=== PATIENT | female | born 1990 | race American Indian/Alaskan Native ===

== ENCOUNTER 2020-01-03 06:00 | Emergency (ER) | payer OTHER ==
[~2020-01-03] VITALS: Ht 167.6 cm; Wt 60.8 kg
[~2020-01-03 06:00] MED LIST: IBUP800 PO; Percocet 5-3251 EACH PO
[2020-01-03] MEDS ORDERED: ASPI81CH PO (06:13)
[2020-01-03] MEDS ORDERED: PRENATAL TABLE1 EAC2 PO (06:13)
[2020-01-03 06:59] LABS: Source, Urine Clean Catch
[2020-01-03 07:03] LABS: BASOPHILS ABSOLUTE AUTO 0.04 K/mm3 (0.00-0.23); BASOPHILS PERCENT AUTO 1 % (0-2); EOSINOPHILS ABSOLUTE AUTO 0.18 K/mm3 (0.00-0.68); EOSINOPHILS PERCENT AUTO 2 % (0-6); Hematocrit 39.3 % (33.0-51.0); IMMATURE GRAN ABSOLUTE AUTO 0.05 K/mm3 (0.00-0.10); IMMATURE GRAN PERCENT AUTO 1 % (0-1); LYMPHOCYTES ABSOLUTE AUTO 2.17 K/mm3 (0.84-5.20); LYMPHOCYTES PERCENT AUTO 26 % (21-46); MONOCYTES ABSOLUTE AUTO 0.78 K/mm3 (0.16-1.47); MONOCYTES PERCENT AUTO 9 % (4-13); Mean Corpuscular HGB 29.6 pg (26.0-34.0); Mean Corpuscular HGB Conc 33.1 g/dL (31.5-36.5); Mean Corpuscular Volume 90 fL (80-100); Mean Platelet Volume 9.2 fL (9.1-12.4); NEUTROPHILS ABSOLUTE AUTO 5.16 K/mm3 (1.96-9.15); NEUTROPHILS PERCENT AUTO 62 % (41-73); Platelet Count 276 K/mm3 (150-400); RDW Coefficient Variation 12.1 % (11.7-14.2); RDW Standard Deviation 39.7 fL (35.1-46.3); Red Blood Cell Count 4.39 M/mm3 (3.80-5.20); White Blood Cell Count 8.38 K/mm3 (4.00-11.30)
[2020-01-03 07:05] LABS: Appearance, Urine Clear (Clear); Bilirubin, Urine Neg (Neg); Blood, Urine 5+ (Neg); Color, Urine Yellow (P-Yellow); Glucose Qualitative, Urine Neg (Neg); Ketones, Urine Neg (Neg); Leukocyte Esterase, Urine Neg (Neg); Nitrite, Urine Neg (Neg); Protein, Urine Neg (Neg); Specific Gravity, Urine 1.005 (1.003-1.022); Urobilinogen, Urine NORM (Normal)
[2020-01-03 07:14] LABS: Alanine Aminotransfer (ALT/SGP 13 U/L (12-78); Albumin, Blood 3.8 g/dL (3.4-5.0); Albumin/Globulin Ratio 1.1 (0.8-1.8); Alk Phos 41 U/L (50-136); Anion Gap 6 mmol/L (6-16); Aspartate Aminotrans (AST/SGOT 21 U/L (12-37); Bilirubin, Total 0.3 mg/dL (0.1-1.0); Blood Urea Nitrogen 9 mg/dL (8-24); Bun/Creatinine Ratio 16.3 (12.0-20.0); CO2, Blood 25 mmol/L (21-32); Calcium, Blood 8.8 mg/dL (8.5-10.1); Chloride, Blood 107 mmol/L (98-108); Creatinine, Blood 0.55 mg/dL (0.40-1.00); Globulin, Blood 3.4 g/dL (2.2-4.0); Glomerular Filtration Rate >60 (60-); Glucose, Blood 95 mg/dL (70-99); Potassium, Blood 3.8 mmol/L (3.5-5.5); Sodium, Blood 138 mmol/L (136-145); Total Protein, Blood 7.2 g/dL (6.4-8.2)
[2020-01-03 07:17] LABS: Bacteria Not Seen /hpf; Squamous Epithelial Cells Few /hpf (Few); White Blood Cells, Urine 0-2 /hpf (0-5)
== END 2020-01-03 09:37 | disposition home or self-care (01) ==
LOC: ER 06:00
PROVIDERS: Emergency Medicine
DX: O20.9 Hemorrhage in early pregnancy, unspecified (principal); Z3A.13 13 weeks gestation of pregnancy; Z79.82 Long term (current) use of aspirin
CPT/HCPCS: 36415; 76801; 80053; 81001; 84702; 84703; 85025; 86900; 86901; 96360; 96361; 96372-59; 99284-25; J2791; J7030

== ENCOUNTER → 2020-04-03 | Outpatient (CLI) | payer OTHER ==
[~2020-04-03] MED LIST changes: +ASPI81CH PO; +PRENATAL TABLE1 EAC2 PO
[2020-04-03 15:09] LABS: Hematocrit 34.4 % (33.0-51.0); Hemoglobin 11.5 g/dL (11.5-16.0)
[2020-04-05 04:12] LABS: CHLAMYDIA TRACHOMATIS, NAA Negative (Negative)
== END ==
LOC: LAB SHORT 12:28
PROVIDERS: Registered Nurse Community Health
DX: Z34.83 Encounter for supervision of other normal pregnancy, third trimester (principal); Z33.1 Pregnant state, incidental
CPT/HCPCS: 82950; 85014; 85018; 87491; 87591

== ENCOUNTER 2020-07-13 16:32 | Inpatient (IN) | payer OTHER ==
[~2020-07-13] VITALS: Ht 165.1 cm; Wt 75.0 kg
[2020-07-13 17:16] LABS: BASOPHILS ABSOLUTE AUTO 0.07 K/mm3 (0.00-0.23); BASOPHILS PERCENT AUTO 1 % (0-2); EOSINOPHILS ABSOLUTE AUTO 0.12 K/mm3 (0.00-0.68); EOSINOPHILS PERCENT AUTO 1 % (0-6); Hematocrit 37.7 % (33.0-51.0); Hemoglobin 13.6 g/dL (11.5-16.0); IMMATURE GRAN ABSOLUTE AUTO 0.22 K/mm3 (0.00-0.10); IMMATURE GRAN PERCENT AUTO 1 % (0-1); LYMPHOCYTES ABSOLUTE AUTO 1.69 K/mm3 (0.84-5.20); LYMPHOCYTES PERCENT AUTO 11 % (21-46); MONOCYTES ABSOLUTE AUTO 0.93 K/mm3 (0.16-1.47); MONOCYTES PERCENT AUTO 6 % (4-13); Mean Corpuscular HGB 30.6 pg (26.0-34.0); Mean Corpuscular HGB Conc 36.1 g/dL (31.5-36.5); Mean Corpuscular Volume 85 fL (80-100); Mean Platelet Volume 9.5 fL (9.1-12.4); NEUTROPHILS ABSOLUTE AUTO 12.37 K/mm3 (1.96-9.15); NEUTROPHILS PERCENT AUTO 80 % (41-73); Platelet Count 249 K/mm3 (150-400); RDW Coefficient Variation 12.5 % (11.7-14.2); RDW Standard Deviation 38.5 fL (35.1-46.3); Red Blood Cell Count 4.44 M/mm3 (3.80-5.20)
[2020-07-13 17:35] LABS: Influenza A, PCR NEGATIVE (NEGATIVE); Influenza B, PCR NEGATIVE (NEGATIVE); Resp Syncytial Virus, PCR NEGATIVE (NEGATIVE); SARS-Cov-2 (COVID-19) PCR, MMC NEGATIVE (NEGATIVE)
[2020-07-14 10:35] LABS: BASOPHILS ABSOLUTE AUTO 0.04 K/mm3 (0.00-0.23); BASOPHILS PERCENT AUTO 0 % (0-2); EOSINOPHILS ABSOLUTE AUTO 0.01 K/mm3 (0.00-0.68); EOSINOPHILS PERCENT AUTO 0 % (0-6); Hematocrit 30.7 % (33.0-51.0); Hemoglobin 10.7 g/dL (11.5-16.0); IMMATURE GRAN PERCENT AUTO 1 % (0-1); LYMPHOCYTES ABSOLUTE AUTO 2.05 K/mm3 (0.84-5.20); LYMPHOCYTES PERCENT AUTO 10 % (21-46); MONOCYTES ABSOLUTE AUTO 1.53 K/mm3 (0.16-1.47); MONOCYTES PERCENT AUTO 8 % (4-13); Mean Corpuscular HGB 30.7 pg (26.0-34.0); Mean Corpuscular HGB Conc 34.9 g/dL (31.5-36.5); Mean Corpuscular Volume 88 fL (80-100); Mean Platelet Volume 9.6 fL (9.1-12.4); NEUTROPHILS ABSOLUTE AUTO 16.54 K/mm3 (1.96-9.15); NEUTROPHILS PERCENT AUTO 81 % (41-73); Platelet Count 205 K/mm3 (150-400); RDW Coefficient Variation 12.8 % (11.7-14.2); Red Blood Cell Count 3.48 M/mm3 (3.80-5.20); White Blood Cell Count 20.37 K/mm3 (4.00-11.30)
[2020-07-14] MEDS ORDERED: IBUP800 PO (17:04)
--- NOTE | 2020-07-15 09:00 | NUR ---
RN/LC ROUNDED TO HELP W/ . PT STATES THAT NB WAS EXTREMELY FUSSY THROUGH THE NIGHT, NOC RN GAVE PT A SHIELD AND WHEN NB WOULD NOT LATCH TO SHIELD PT REQUESTED A BOTTLE. LC ENCOURAGED PT TO LATCH NB TO BREAST MUCH SHE CAN W/O SHIELD. IF USING SHIELD CONSISTANTLY, PT IS INSTRUCETED TO PUMP AFTER MOST FEEDS FOR 10-15 MINUTES FOR ADDITIONAL STIMULATION. INSTRUCTED PT TO ATTEMPT TO LATCH NB W/O SHIELD EACH FEED, IF NB WILL NOT LATCH TO USE SHIELD. INSTRUCT/DEMO HOW TO USE CURVED TIP SYRINGE TO LOAD SHIELD W/ FORMULA OR EBM TO HELP START FEEDS. NB VERY FUSSY W/ CURRENT FEED.
--- NOTE | 2020-07-15 10:35 | NUR ---
DISCHARGE INSTRUCTIONS, WRITTEN AND VERBAL, GIVEN TO PT AND , DUC. ANSWERED ALL QUESTIONS AND CONCERNS. PT DENIED NEEDING ANY PRESCRIPTIONS. FOLLOW UP APPOINTMENT SCHEDULED. RETURNED ALL PERSONAL BELONGINGS. PT IS READY FOR DISCHARGE.
== END 2020-07-15 11:00 | disposition home or self-care (01) | DRG 807 ==
LOC: BC 16:32 → OBS 16:32 → BC 16:43
PROVIDERS: ADMIT Registered Nurse Community Health
PROC: 10907ZC Drainage of Amniotic Fluid, Therapeutic from Products of Conception, Via Natural or Artificial Opening (ICD-10-PCS; 2020-07-13)
PROC: 10E0XZZ Delivery of Products of Conception, External Approach (ICD-10-PCS; principal; 2020-07-14)
PROC: 0KQM0ZZ Repair Perineum Muscle, Open Approach (ICD-10-PCS; 2020-07-14)
DX: O69.81X0 Labor and delivery complicated by cord around neck, without compression, not applicable or unspecified (principal); Z37.0 Single live birth; O70.1 Second degree perineal laceration during delivery; Z3A.40 40 weeks gestation of pregnancy; Z20.822 Contact with and (suspected) exposure to COVID-19
CPT/HCPCS: 0241U; 36415; 85025; 86850; 86870; 86900; 86901; A9270; J1885; J2210; J2590; J7120

== ENCOUNTER → 2023-05-11 | Outpatient (CLI) | payer OTHER ==
[2023-05-19 13:12] LABS: HPV GENOTYPE 16 Not Detected; HPV GENOTYPE 18 Not Detected; HPV HIGH RISK Not Detected; HPV SOURCE Cervical
== END | disposition home or self-care (01) ==
LOC: LAB SHORT 13:20 → LAB 13:20
PROVIDERS: Registered Nurse Community Health
DX: Z12.4 Encounter for screening for malignant neoplasm of cervix (principal)
CPT/HCPCS: 87624; G0123

== ENCOUNTER → 2023-09-13 | Outpatient (CLI) | payer OTHER | LOC: LAB SHORT 08:20 → LAB 08:20 | DX: Z32.00 Encounter for pregnancy test, result unknown (principal) | CPT/HCPCS: 84702 ==

== ENCOUNTER → 2023-09-15 | Outpatient (CLI) | payer OTHER | LOC: LAB SHORT 11:36 → LAB 11:36 | DX: O36.80X0 Pregnancy with inconclusive fetal viability, not applicable or unspecified (principal) | CPT/HCPCS: 84702 ==

== ENCOUNTER → 2024-08-16 | Outpatient (CLI) | payer OTHER | LOC: LAB 10:24 → LAB SHORT 10:24 | DX: Z34.81 Encounter for supervision of other normal pregnancy, first trimester (principal) ==

== ENCOUNTER → 2024-10-24 | Outpatient (CLI) | payer OTHER ==
[2024-10-24 16:44] LABS: Chlamydia Trachomatis Urine NOT DETECTED (NOT DETECT); Neisseria Gonorrhoea Urine NOT DETECTED (NOT DETECT)
== END ==
LOC: LAB SHORT 12:37 → LAB 12:37
PROVIDERS: Registered Nurse Community Health
DX: Z34.82 Encounter for supervision of other normal pregnancy, second trimester (principal)
CPT/HCPCS: 87491; 87591

== ENCOUNTER 2025-03-02 15:15 | Inpatient (IN) | payer OTHER ==
[~2025-03-02] VITALS: Ht 167.6 cm; Wt 80.7 kg
[2025-03-02 15:27] VITALS: BP 143/78
[2025-03-02] MEDS ORDERED: FentaNYL Citrate 50 MCG/ML 2 ML Injection IV PRN (15:35)
[2025-03-02] MEDS ORDERED: Oxytocin 10 Unit / ML Vial IM PRN (15:35)
[2025-03-02] MEDS ORDERED: OXYTOCIN/RINGER'S LACTATE 500 ML IV PRN (15:35)
[2025-03-02] MEDS ORDERED: Methylergonovine Maleate 0.2MG / ML 1ML Amp IM PRN (15:35)
[2025-03-02] MEDS ORDERED: Ondansetron HCl 2 MG / ML 2ML Vial IV PRN (15:35)
[2025-03-02] MEDS ORDERED: Tranexamic Acid 100 ML IV SCH (15:35)
[2025-03-02] MEDS ORDERED: Carboprost Tromethamine 250 MCG/ML 1ML Amp IM PRN (15:35)
[2025-03-02] MEDS ORDERED: ePHEDrine Sulfate 50 MG/ML 1ML Injection XX PRN (15:40)
[2025-03-02] MEDS ORDERED: FentaNYL 2mcg/ml-Bup 0.1% Epd 250 ML EPI PRN (15:40)
[2025-03-02] MEDS ORDERED: LABE100 PO (16:04)
[2025-03-02] MEDS ORDERED: Vitamin B-12100 MCG PO (16:05)
[2025-03-02] MEDS ORDERED: PROBIOTIC1 EA14 PO (16:06)
[2025-03-02 16:24] LABS: BASOPHILS ABSOLUTE AUTO 0.05 K/mm3 (0.00-0.23); BASOPHILS PERCENT AUTO 0 % (0-2); EOSINOPHILS ABSOLUTE AUTO 0.14 K/mm3 (0.00-0.68); EOSINOPHILS PERCENT AUTO 1 % (0-6); Hematocrit 36.2 % (33.0-51.0); Hemoglobin 12.7 g/dL (11.5-16.0); IMMATURE GRAN ABSOLUTE AUTO 0.21 K/mm3 (0.00-0.10); IMMATURE GRAN PERCENT AUTO 2 % (0-1); LYMPHOCYTES ABSOLUTE AUTO 1.62 K/mm3 (0.84-5.20); LYMPHOCYTES PERCENT AUTO 13 % (21-46); MONOCYTES ABSOLUTE AUTO 0.90 K/mm3 (0.16-1.47); MONOCYTES PERCENT AUTO 7 % (4-13); Mean Corpuscular HGB Conc 35.1 g/dL (31.5-36.5); Mean Corpuscular Volume 88 fL (80-100); NEUTROPHILS ABSOLUTE AUTO 9.48 K/mm3 (1.96-9.15); NEUTROPHILS PERCENT AUTO 76 % (41-73); NRBC ABSOLUTE 0.00 K/mm3 (0.00-0.02); NRBC Auto 0.0 /100 WBC (0.0-0.2); Platelet Count 289 K/mm3 (150-400); RDW Coefficient Variation 13.0 % (11.7-14.2); RDW Standard Deviation 41.5 fL (35.1-46.3)
[2025-03-02 16:35] VITALS: BP 137/88
[2025-03-02 16:45] LABS: Alanine Aminotransfer (ALT/SGP 27.0 U/L (12-78); Albumin, Blood 3.1 g/dL (3.4-5.0); Albumin/Globulin Ratio 0.8 (0.8-1.8); Anion Gap 11.0 mmol/L (3-11); Aspartate Aminotrans (AST/SGOT 37.0 U/L (12-37); Bilirubin, Total 0.2 mg/dL (0.1-1.0); Blood Urea Nitrogen 10.0 mg/dL (8-24); CO2, Blood 22.0 mmol/L (21-32); Calcium, Blood 9.0 mg/dL (8.5-10.1); Chloride, Blood 106.0 mmol/L (98-108); Creatinine, Blood 0.52 mg/dL (0.40-1.00); Globulin, Blood 3.7 g/dL (2.2-4.0); Glucose, Blood 96.0 mg/dL (70-99); Potassium, Blood 3.9 mmol/L (3.5-5.5); Sodium, Blood 135.0 mmol/L (136-145); Total Protein, Blood 6.8 g/dL (6.4-8.2)
[2025-03-02 18:11] VITALS: BP 136/84
[2025-03-02 19:52] VITALS: BP 134/73
[2025-03-02 21:20] VITALS: BP 144/70
[2025-03-02 21:37] VITALS: BP 138/78
[2025-03-03] VITALS (20 sets, daily range): BP systolic 108–157; BP diastolic 52–87
[2025-03-03] MEDS ORDERED: OXYTOCIN/RINGER'S LACTATE 500 ML IV SCH ×2 (17:20→21:25)
[2025-03-04] VITALS (71 sets, daily range): BP systolic 87–169; BP diastolic 47–78
[2025-03-04] MEDS ORDERED: Ampicillin Sod 1,000 MG in NS 50 ML IV SCH (06:00)
[2025-03-04] MEDS ORDERED: Methylergonovine Maleate 0.2MG / ML 1ML Amp IM PRN (13:05)
[2025-03-04] MEDS ORDERED: OxyCODONE 5 mg/Acetamin 325 mg TABLET PO PRN (13:05)
[2025-03-04] MEDS ORDERED: Benzocaine Topical Anesthetic Spray 60GM TOP PRN (13:05)
[2025-03-04] MEDS ORDERED: Oxytocin 10 Unit / ML Vial IM ONE (13:05)
[2025-03-04] MEDS ORDERED: Carboprost Tromethamine 250 MCG/ML 1ML Amp IM PRN (13:10)
[2025-03-04] MEDS ORDERED: Ketorolac Tromethamine 30mg Vial IV PRN (13:10)
[2025-03-04] MEDS ORDERED: Acetaminophen/Codeine 300-30 mg PO PRN (13:10)
[2025-03-04] MEDS ORDERED: OXYTOCIN/RINGER'S LACTATE 500 ML IV SCH (13:15)
[2025-03-04] MEDS ORDERED: FLU VACC TS2025-26(6MOS UP)/PF 45 MCG/0.5 ML SYRINGE IM SCH (13:15)
[2025-03-04] MEDS ORDERED: Witch Hazel/Glycerin PADS TOP PRN (13:15)
[2025-03-04] MEDS ORDERED: Rho(D) Immune Globulin 300 MCG / SYR IM ONE (13:15)
[2025-03-04] MEDS ORDERED: Rho(D) Immune Globulin 300 MCG / SYR IV ONE (20:30)
--- NOTE | 2025-03-04 21:20 | NUR ---
CALL TO ROSA REGARDING PTS B/P OF 145/68 FOLLOWED BY A REPEAT BLOOD PRESSURE OF 139/78. B/P DECLINES TO TAKE LABETALOL AT THIS TIMES, STATES SHE WOULD LIKE TO "ORGANICALLY" LOWER BLOOD PRESSURE IF POSSIBLE BY RELAXING. ROSA STATES THAT PT MAY SKIP HER LABETALOL FOR NOW, BUT THAT PT IS TO NOTIFY THIS RN IF SHE BECOMES SYMPTOMATIC OF HIGH BLOOD PRESSURE, HEADACHE, EPIGASTRIC PAIN, BLURRED VISION, OR PAIN BEHIND HER EYES.
[2025-03-05 00:21] VITALS: BP 134/78
[2025-03-05 04:07] VITALS: BP 137/77
[2025-03-05 08:16] VITALS: BP 142/81
[2025-03-05] MEDS ORDERED: Prenatal Vit/FE Fumarate/FA 1 Tab PO SCH (09:00)
[2025-03-05 09:55] VITALS: BP 133/74
[2025-03-05] MEDS ORDERED: IBUP200 PO (10:24)
[2025-03-05] MEDS ORDERED: ACET500 PO (10:24)
--- NOTE | 2025-03-05 10:33 | NUR ---
RAUL WAS NOTIFIED @8862 THAT BP WAS 142/81 AND PT WAS STILL DECLINING LABETOLOL AT THAT TIME. ALSO, THAT PT WAS ASYMPTOMATIC. SINCE THEN RAUL HAS SEEN PT. DISCUSSED THE RISKS VS BENEFITS OF TAKING LABETOLOL. PT WAS CONCERNED ABOUT THE LABETOLOL CAUSING THE NB BLOOD SUGAR TO BE LOW DUE TO A COMMENT FROM THE NURSING STAFF. THIS RN AND RAUL EXPLAINED THE LOW RISKS FOR THIS HAPPENING. PT IS NOW WILLING TO TAKE LABETOLOL IF NEEDED. SHE WILL MONITOR BP AT HOME AND START TAKING IT IF BP INCREASES OR SYMPTOMS BEGIN. SHE CURRENTLY HAS SOME LABETOLOL AT HOME FROM PRIOR TO DELIVERY AND HER WILL [employer] THE REST OF HER PRESCRIPTION FROM [facility] TODAY OR TOMORROW. RAUL ORDERED TO CHECK BP MULTIPLE TIMES PRIOR TO DISCHARGE TO GET A GOOD IDEA OF WHERE PT BP IS AT CURRENLTY, BUT OK TO STILL D/C.
[2025-03-05 11:14] VITALS: BP 137/82
== END 2025-03-05 13:25 | disposition home or self-care (01) | DRG 807 ==
LOC: BC 15:15 → OBS 15:15 → BC 15:28 → OBS 15:28 → BC 03-03 19:18
PROVIDERS: ADMIT Registered Nurse Community Health
PROC: 10907ZC Drainage of Amniotic Fluid, Therapeutic from Products of Conception, Via Natural or Artificial Opening (ICD-10-PCS; 2025-03-03)
PROC: 3E0P7VZ Introduction of Hormone into Female Reproductive, Via Natural or Artificial Opening (ICD-10-PCS; 2025-03-03)
PROC: 3E033VJ Introduction of Other Hormone into Peripheral Vein, Percutaneous Approach (ICD-10-PCS; 2025-03-03)
PROC: 00HU33Z Insertion of Infusion Device into Spinal Canal, Percutaneous Approach (ICD-10-PCS; 2025-03-03)
PROC: 3E0R3BZ Introduction of Anesthetic Agent into Spinal Canal, Percutaneous Approach (ICD-10-PCS; 2025-03-03)
PROC: 10E0XZZ Delivery of Products of Conception, External Approach (ICD-10-PCS; principal; 2025-03-04)
PROC: 0HQ9XZZ Repair Perineum Skin, External Approach (ICD-10-PCS; 2025-03-04)
PROC: 10H07YZ Insertion of Other Device into Products of Conception, Via Natural or Artificial Opening (ICD-10-PCS; 2025-03-04)
DX: O13.4 Gestational [pregnancy-induced] hypertension without significant proteinuria, complicating childbirth (principal); Z37.0 Single live birth; Z3A.38 38 weeks gestation of pregnancy; O70.0 First degree perineal laceration during delivery
CPT/HCPCS: 36415; 51702; 59414; 80053; 85025; 85460; 86850; 86870; 86900; 86901; 86922; A9270; J0290; J1885; J2590; J2791; J7120